=== PATIENT | female | born 1960 | race Asian ===

== ENCOUNTER → 2024-09-07 | Day surgery (SDC) | payer MEDICARE ==
[2024-09-06 10:03] LABS: BASOPHILS % 0.8 % (0.0-1.0); EOSINOPHILS # (AUTO) 0.1 (0.0-0.4); EOSINOPHILS % 1.2 % (0.0-6.0); HEMOGLOBIN 13.5 g/dL (12.0-16.0); LYMPHOCYTES # (AUTO) 2.2 (1.0-3.2); LYMPHOCYTES % 44.2 % (18.0-39.1); MEAN CORPUSCULAR HEMOGLOBIN 30.6 pg (28-32); MEAN CORPUSCULAR HGB CONC 33.8 g/dL (31-35); MEAN CORPUSCULAR VOLUME 90.7 fL (81-99); MONOCYTES # (AUTO) 0.6 (0.2-0.8); NEUTROPHILS # (AUTO) 2.1 (2.1-6.9); NEUTROPHILS % 42.6 % (38.7-80.0); PLATELET COUNT 288 x10e3/uL (140-360); RED BLOOD COUNT 4.41 x10e6/uL (3.6-5.1); RED CELL DISTRIBUTION WIDTH 12.6 % (11.7-14.4); WHITE BLOOD COUNT 5.02 x10e3/uL (4.8-10.8)
[2024-09-06 10:25] LABS: CALCIUM 9.1 mg/dL (8.4-10.2); CREATININE, SERUM 0.77 mg/dL (0.57-1.11)
[~2024-09-07] MED LIST: ACETAMINOPHEN 1000 MG/100 ML 100 ML IV ONE; BUPIVACAINE/EPI 0.5% 30ML SDV-MPF INJ ONE; DEXAMETHASONE SOD PHOS INJ 4 MG/ML SDV ONE; FAMOTIDINE 20 MG/2 ML VIAL IV ONE; FENTANYL CITRATE/PF 100MCG/2 ML INJ ONE; LIDOCAINE HCL 2% LOCAL INJ 5 ML SDV VIAL INJ ONE; MIDAZOLAM HCL 2 MG/2 ML VIAL ONE; ONDANSETRON HCL INJ 2MG/ML 2ML 2 MG/ML VIAL ONE; PROPOFOL IV EMULSION 10 MG/ML 20 ML VIAL ONE; SEVOFLURANE INHAL SOLN 250 ML PEN BTL ONE; ZYRTEC-D TABLE1 EACH PO
[2024-09-07] MEDS: LACTATED RINGER'S 1,000 ML ONE (07:28)
[2024-09-07] MEDS: CLINDAMYCIN PHOS 900MG/ 50ML 50 ML IV ONE (09:26)
[2024-09-07] MEDS: SCOPOLAMINE 1 MG PATCH ONE (09:26)
[2024-09-07] MEDS: METOCLOPRAMIDE HCL 10 MG/2ML VIAL ONE (11:48)
[2024-09-07 12:35] VITALS: BP 122/88; PULSE 70; RESP 16; O2SAT 99
== END | disposition home or self-care (01) ==
LOC: OR 06:32
PROVIDERS: ATTEND Podiatrist Foot Surgery
DX: M21.622 Bunionette of left foot (principal); S93.115A Dislocation of interphalangeal joint of left lesser toe(s), initial encounter; K21.9 Gastro-esophageal reflux disease without esophagitis; Z88.0 Allergy status to penicillin; J30.2 Other seasonal allergic rhinitis; T78.49XA Other allergy, initial encounter; X58.XXXA Exposure to other specified factors, initial encounter; Z01.810 Encounter for preprocedural cardiovascular examination; Z01.812 Encounter for preprocedural laboratory examination; Z01.818 Encounter for other preprocedural examination
CPT/HCPCS: 28110; 28645; 36415; 71046; 80048; 85025; 93005; C1713; J0131; J1100; J2003; J2250; J2405; J2704; J2765; J3010; J7121

== ENCOUNTER → 2025-01-18 | Day surgery (SDC) | payer MEDICARE ==
[2025-01-17 10:08] LABS: BASOPHILS % 0.4 % (0.0-1.0); EOSINOPHILS % 1.3 % (0.0-6.0); LYMPHOCYTES % 39.3 % (18.0-39.1); MONOCYTES % 10.0 % (4.4-11.3); NEUTROPHILS % 48.8 % (38.7-80.0); RED CELL DISTRIBUTION WIDTH 12.6 % (11.7-14.4)
[2025-01-17 10:38] LABS: EST GLOMERULAR FILTRATION RATE 81.0 ML/MIN (>=60)
[~2025-01-18] MED LIST changes: -BUPIVACAINE/EPI 0.5% 30ML SDV-MPF INJ ONE; +CRESTOR40 MG; +D3-5000125 MCG; +IBUPROFEN200 MG PO; -MIDAZOLAM HCL 2 MG/2 ML VIAL ONE; +NAPROXEN250 MG PO; +TERBINAFINE HC250 MG PO; +ULTRAM 50MG50 MG PO; +VITAMIN C500 MG PO
[2025-01-18] MEDS: LACTATED RINGER'S 1,000 ML ONE (08:29)
[2025-01-18] MEDS: CLINDAMYCIN PHOS 900MG/ 50ML 50 ML IV ONE (08:45)
[2025-01-18 11:20] VITALS: TEMP 98.2
[2025-01-18] MEDS: FENTANYL CITRATE/PF 100MCG/2 ML INJ ONE (11:43)
[2025-01-18] MEDS: TRAMADOL HCL 50 MG TAB ONE (12:10)
[2025-01-18 12:40] VITALS: BP 142/91; PULSE 59; RESP 16; O2SAT 99
== END | disposition home or self-care (01) ==
LOC: OR 07:39
PROVIDERS: ATTEND Podiatrist Foot Surgery
DX: M20.11 Hallux valgus (acquired), right foot (principal); M21.621 Bunionette of right foot; T78.49XA Other allergy, initial encounter; J30.2 Other seasonal allergic rhinitis; E78.5 Hyperlipidemia, unspecified; K21.9 Gastro-esophageal reflux disease without esophagitis; G89.29 Other chronic pain; Z88.0 Allergy status to penicillin; X58.XXXA Exposure to other specified factors, initial encounter; Z01.810 Encounter for preprocedural cardiovascular examination; Z01.812 Encounter for preprocedural laboratory examination; Z79.1 Long term (current) use of non-steroidal anti-inflammatories (NSAID); Z79.899 Other long term (current) drug therapy
CPT/HCPCS: 28110; 28292; 36415; 80048; 85025; 93005; C1713 ×2; J0131; J1100; J1308; J2003; J2405; J2704; J3010; J7121; 76000